=== PATIENT | female | born 1955 | race African-American/Black ===

== ENCOUNTER 2017-08-19 00:34 | Day surgery (SDC) | payer BC ==
[2017-08-19 01:13] LABS: #Eosinphils 0.1 thou/uL (0.0-0.7); #Lymphocytes 2.7 thou/uL (1.20-3.40); #Monocytes 0.5 thou/uL (0.11-0.59); #Neutrophils 3.6 thou/uL (1.40-6.50); %Basophils 0.3 % (0.0-1.0); %Lymphocytes 38.7 % (21.0-51.0); %Monocytes 7.4 % (0.0-10.0); %Neutrophils 51.6 % (42.0-75.0); Hemoglobin 10.1 g/dL (12.0-16.0); Mean Corpuscular HGB CONC 33.4 g/dL (32.0-36.0); Mean Corpuscular Hemoglobin 31.1 pg (27.0-31.0); Mean Corpuscular Volume 93.2 fl (81.0-99.0); Mean Platelet Volume 7.9 fL (7.4-10.4); Platelet Count 237 thou/uL (130-400); RBC Distribution Width 12.6 % (11.5-14.5); Red Blood Cell (RBC) Count 3.24 mill/uL (4.20-5.40); White Blood Cell (WBC) Count 6.9 thou/uL (4.8-10.8)
[2017-08-19] MEDS ORDERED: Ondansetron HCl/PF 4 MG/2 ML Vial ONE ×2 (01:31→02:09)
[2017-08-19 01:54] LABS: CKMB 1.7 ng/mL (0-6.6); Troponin I Less than 0.010 ng/mL (< 0.028)
[2017-08-19 02:03] LABS: ALT (SGPT) 13 U/L (8-55); AST (SGOT) 21 U/L (5-34); Albumin 4.2 g/dL (3.4-4.8); Alkaline Phosphatase 86 U/L (40-150); Anion Gap 15 mmol/L (10-20); BUN (Urea Nitrogen) 39 mg/dL (9.8-20.1); Bilirubin, Total 0.3 mg/dL (0.2-1.2); CK (CPK) 266 U/L (29-168); Calc. Creatinine Clearance 0 mL/min (70-130); Calcium 10.1 mg/dL (7.8-10.44); Carbon Dioxide 22 mmol/L (23-31); Chloride 108 mmol/L (98-107); Estimated GFR-MDRD 32; Globulin 3.6 g/dL (2.4-3.5); Glucose 124 mg/dL (80-115); Potassium 3.7 mmol/L (3.5-5.1); Protein, Total 7.8 g/dL (6.0-8.3); Sodium 141 mmol/L (136-145)
[2017-08-19] MEDS ORDERED: Famotidine 20 MG TAB ONE (02:51)
[2017-08-19] MEDS ORDERED: Lidocaine Viscous Sol 2% 15 ml UD Cup ONE (02:51)
[2017-08-19] MEDS ORDERED: Milk Of Magnesia 30 ML UDCUP ONE (02:51)
[2017-08-19] MEDS ORDERED: Metoclopramide HCl 10 MG/2 ML VIAL ONE ×2 (02:57→09:23)
[2017-08-19 04:51] LABS: CKMB 1.5 ng/mL (0-6.6); Troponin I Less than 0.010 ng/mL (< 0.028)
[2017-08-19] MEDS ORDERED: Ketorolac Tromethamine 30 MG/ML VIAL ONE (05:26)
[2017-08-19] MEDS ORDERED: Meropenem 1 GM in Syringe 20 ML SLOW IVP SCH (06:00)
[2017-08-19 06:04] LABS: Prothrombin Time 13.7 SEC (12.0-14.7)
[2017-08-19 06:05] LABS: PTT 54.9 SEC (22.9-36.1)
[2017-08-19] MEDS ORDERED: Scopolamine 1.5 mg/72 hour Patch ONE (07:32)
--- NOTE | 2017-08-19 08:03 | ULT ---
PRELIMINARY REPORT/[facility]/EMERGENCY AFTER HOURS PROCEDURE: EXAM: US Abdomen Limited, Right Upper Quadrant EXAM DATE/TIME: Exam ordered 08/19/2017 4:36 AM CLINICAL HISTORY: 62 years old, female; Pain; Other: Ruq pain, n/v TECHNIQUE: Real-time ultrasound of the right upper quadrant with image documentation. COMPARISON: No relevant prior studies available. FINDINGS: Liver: Unremarkable. No mass. No intrahepatic bile duct dilation. Gallbladder: Cholelithiasis at the neck of the gallbladder. Gallbladder is distended. Gallbladder wal l is at upper limits of normal in thickness and mildly thickened. No pericholecystic fluid. Sonograph ic Lucio's sign is reported positive. At the fundus of the gallbladder there is a subtle echogenic f ocus at or adjacent to the wall with comet tail artifact/dirty shadowing. Common bile duct: Unremarkable as visualized. No stones. No dilation. Pancreas: Unremarkable as visualized. Right kidney: Right kidney is polycystic. No hydronephrosis. No stones. IMPRESSION: 1. Cholelithiasis adnexal gallbladder. Probable mild gallbladder wall thickening or positive sonograp hic Lucio's sign, suspicious for acute cholecystitis. There is a subtle echogenic focus at or adjace nt to the wall of the fundus of the gallbladder with common tail artifact/dirty shadowing, either secondary to a cholesterol deposit in the wall or indicative of gas in the lumen of the gallbladder, the latter of which would indicate emphysematous cystitis. Recommend intravenous contrast enhanced CT abdomen/pelvis for more definitive characterization. 2. Polycystic renal disease. Thank you for allowing us to participate in the care of your patient. Dictated and Authenticated by: Jassi Lew MD 08/19/2017 5:14 AM Central Time ([place] & [place]) FINAL REPORT EMERGENCY AFTER HOURS SONOGRAM RIGHT UPPER QUADRANT: Date: 08/19/17 Time: 0440 hours HISTORY: Right upper quadrant pain. FINDINGS: Findings agree with the preliminary report by [facility]. Gallstones are confirmed. Irregular echogenicity at the gallbladder fundus could represent gas. Clinical correlation regarding other signs and symptom s of emphysematous cholecystitis is required. CT abdomen with IV and oral contrast could help with be tter characterization if needed. POS: [facility]
--- NOTE | 2017-08-19 08:05 | HP ---
HISTORY OF PRESENT ILLNESS: Eliza King is a 62-year-old black female, who presents to the emergency room with epigastric right upper quadrant pain, back radiation, first episode. She de nies any prior biliary symptoms. In the emergency room, she had a white count of 6.9, hemoglobin 10. 1, normal coagulation studies, normal liver function test, BUN of 39, creatinine 1.93 (chronic with p olycystic kidney disease). Sodium 141, potassium 3.7. She had an ultrasound that showed a normal bi le duct caliber and a gallstone lodged in the gallbladder neck. She presented to emergency room abou t 11:00 p.m. I was called about approximately 5:15 a.m. She was brought to outpatient surgery for a laparoscopic cholecystectomy. Risk of infection, bleeding, reoperation, visceral and biliary injury explained. She consents and questions answered. ALLERGIES: SULFA. TOBACCO: None. ALCOHOL: Socially. PAST MEDICAL HISTORY: Diabetes mellitus, non-insulin dependent, on oral hypoglycemics; hypertension; polycystic kidney disease with chronic kidney disease, followed by Dr. Felton Bobby; sleep apnea, she uses CPAP at night. Primary care physician is Dr. Bill. Patient denies any past history of ca rdiac disease. She has never had to have a stress test or catheterization. She has had a colonoscop y about 3 years ago. PAST SURGICAL HISTORY: Right total knee replacement 3 years ago, colonoscopy 3 years ago, total abdo griffin hysterectomy, bilateral salpingo-oophorectomy. Sphincterotomy for anal fissure in the past. 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 REVIEW OF SYSTEMS: Ten-point noncontributory, otherwise. PHYSICAL EXAMINATION: VITAL SIGNS: 117 kilograms, 171/104, 91, 21 respiratory rate, 98 degrees. HEAD, EARS, EYES, NOSE, AND THROAT: Unremarkable. Sclerae nonicteric. SKIN: Nonjaundiced. LUNGS: Clear to auscultation. CARDIAC: Regular rate and rhythm without murmur, rub, or gallop. ABDOMEN: Soft, tenderness in her epigastrium and right upper quadrant with guarding. EXTREMITIES: Unremarkable. LABORATORY DATA: As noted above. ASSESSMENT AND PLAN: 1. Acute cholecystitis and cholelithiasis, first episode. Recommend laparoscopic video cholecystect jalil. Risks and benefits as discussed above. 2. Sleep apnea, on CPAP, compliant. 3. Noninsulin-dependent diabetes mellitus, on oral hypoglycemics. 4. Hypertension. 5. Obesity. 6. Metabolic syndrome. 7. History of right hip replacement.
--- NOTE | 2017-08-19 08:53 | RAD ---
CHEST 1 VIEW: Date: 08/19/17 HISTORY: Chest pain. COMPARISON: Radiograph from 2013. FINDINGS: Lungs are clear. No pneumothorax or effusion. Cardiac silhouette and mediastinal contours within norm al limits. Mild atelectasis in the lung bases. IMPRESSION: No acute intrathoracic abnormality. POS: [facility]
[2017-08-19] MEDS ORDERED: Bupivacaine HCl 0.5%/Epinephrine 1:200,000/PF 30 ml Vial ONE (09:19)
[2017-08-19] MEDS ORDERED: HYDROmorphone 0.5 MG/0.5 ML SYRINGE ONE (09:23)
[2017-08-19] MEDS ORDERED: SUGAMMADEX SODIUM 500 MG/5 ML VIAL ONE (10:21)
--- NOTE | 2017-08-19 11:04 | OP ---
DATE OF PROCEDURE: 08/19/2017 PREOPERATIVE DIAGNOSES: Acute and chronic cholecystitis, cholelithiasis, morbid obesity, sleep apnea , diabetes mellitus, hypertension, metabolic syndrome. POSTOPERATIVE DIAGNOSES: Acute and chronic cholecystitis, cholelithiasis, morbid obesity, sleep apne a, diabetes mellitus, hypertension, metabolic syndrome. PROCEDURE: Laparoscopic video cholecystectomy. SURGEON: Dr. Felton Toure. ANESTHESIA: General. Local 0.5% Marcaine with epinephrine, 30 mL. PROCEDURES: The patient taken to the operating room in supine position under general anesthesia, abd omen prepared with ChloraPrep, draped in routine fashion. Local anesthetic infiltrated into skin and subcutaneous tissue about all port sites. Right lateral subcostal incision made, mid clavicular america es and Veress needle placed through a stab incision establishing pneumoperitoneum to 15 mmHg and Mago ss needle replaced with a 5 port laparoscope inserted. There is some omental adhesions about the umb ilicus and a supraumbilical incision made and a 5 port placed and video laparoscope moved to this por t. Right subxiphoid incision made and 11 port placed. Right lateral subcostal incision made and 5 p ort placed. Liver appeared to be normal. Some filmy adhesions taken down with cold scissors. Liver otherwise normal. Gallbladder was inflamed, thickened wall, edematous and fundus grasped, draining hydrops of the gallbladder. Infundibulum grasped and reflected laterally. Cystic artery and duct di ssected free. Critical view obtained with pericholecystic dissection. Two-thirds of cystic plate an d cystic artery and duct doubly clipped proximally, divided, and gallbladder dissected free from live r bed obtaining good hemostasis prior to division of final peritoneal attachments. Gallbladder and c ontents and large stone removed and submitted to Pathology. Good hemostasis ensured with the cautery . Irrigant and pneumoperitoneum evacuated. All instruments removed and all skin incisions approxima gm with interrupted subdermal 4-0 Monocryl and DermaGlue applied.
== END 2017-08-19 12:59 | disposition home or self-care (01) ==
LOC: ERS 00:34 → 3SE 05:35 → UNDOADMIN 05:35 → SDC 06:34
PROVIDERS: ATTEND Specialist
PROC: 0FT44ZZ Resection of Gallbladder, Percutaneous Endoscopic Approach (ICD-10-PCS; principal; 2017-08-19)
DX: K80.12 Calculus of gallbladder with acute and chronic cholecystitis without obstruction (principal); I10 Essential (primary) hypertension; E11.9 Type 2 diabetes mellitus without complications; G47.30 Sleep apnea, unspecified; E88.81 Metabolic syndrome and other insulin resistance; E66.01 Morbid (severe) obesity due to excess calories; Z88.2 Allergy status to sulfonamides; Z79.84 Long term (current) use of oral hypoglycemic drugs; Z99.89 Dependence on other enabling machines and devices; Z98.890 Other specified postprocedural states
CPT/HCPCS: 36415; 71045; 76705; 80053; 82553; 83690; 83880; 84484; 85025; 85610; 85730; 86850; 86900; 86901; 88304; 93005; 94760; 96365; 96375; 96376; J0131; J0670; J1170; J1885; J2185; J2405; J2765

== ENCOUNTER 2018-01-02 14:47 | Outpatient (CLI) | payer BC | END 2018-01-02 14:48 | disposition home or self-care (01) | LOC: DTY/OP 14:47 | PROVIDERS: ATTEND Family Medicine | DX: E78.5 Hyperlipidemia, unspecified (principal); E11.65 Type 2 diabetes mellitus with hyperglycemia; E66.01 Morbid (severe) obesity due to excess calories | CPT/HCPCS: 97802 ==

== ENCOUNTER 2018-08-18 15:21 | Outpatient (CLI) | payer BC ==
--- NOTE | 2018-08-18 17:22 | ULT ---
TRANSVAGINAL PELVIC ULTRASOUND: Clinical indication: Pelvic pain in a 63-year-old female. FINDINGS: There is nonvisualization of the uterus and adnexa. No free pelvic fluid is seen. Urinary bladder is mildly distended. IMPRESSION: 1. Nonvisualization of the uterus and adnexa. 2. No significant free pelvic fluid. POS: [facility]
== END 2018-08-18 15:22 | disposition home or self-care (01) ==
LOC: BICULT 15:21
PROVIDERS: ATTEND Family Medicine
DX: R10.2 Pelvic and perineal pain (principal); Q61.3 Polycystic kidney, unspecified
CPT/HCPCS: 76856

== ENCOUNTER 2019-04-10 15:13 | Outpatient (CLI) | payer BC ==
--- NOTE | 2019-04-10 16:25 | MMO ---
Bilateral MAMMO Bilat Screen [facility]. CLINICAL HISTORY: Patient is 64 years old and is seen for screening. The patient has no family history of breast cancer. The patient has no personal history of cancer. VIEWS: The views performed were: bilateral craniocaudal; bilateral craniocaudal with tomosynthesis; bilateral mediolateral oblique; and bilateral mediolateral oblique with tomosynthesis. FILMS COMPARED: The present examination has been compared to a prior imaging study performed at [facility] [place] on 01/24/2018. This study has been interpreted with the assistance of computer-aided detection. MAMMOGRAM FINDINGS: There are scattered fibroglandular densities. Benign calcifications are noted bilaterally. There are no suspicious masses, suspicious calcifications, or new areas of architectural distortion. IMPRESSION: THERE IS NO MAMMOGRAPHIC EVIDENCE OF MALIGNANCY. A ROUTINE FOLLOW-UP MAMMOGRAM IN 1 YEAR IS RECOMMENDED. THE RESULTS OF THIS EXAM WERE SENT TO THE PATIENT. ACR BI-RADS Category 2 - Benign finding MAMMOGRAPHY NOTE: 1. A negative mammogram report should not delay a biopsy if a dominant of clinically suspicious mass is present. 2. Approximately 10% to 15% of breast cancers are not detected by mammography. 3. Adenosis and dense breasts may obscure an underlying neoplasm. Reported by: LULA MORSE MD Electonically Signed: [id number]
== END 2019-04-10 15:14 | disposition home or self-care (01) ==
LOC: BICMAMMO 15:13
PROVIDERS: ATTEND Family Medicine
DX: Z12.31 Encounter for screening mammogram for malignant neoplasm of breast (principal)
CPT/HCPCS: 77063; 77067

== ENCOUNTER 2020-04-11 08:23 | Outpatient (CLI) | payer MEDICARE ==
--- NOTE | 2020-04-11 09:01 | MMO ---
Bilateral MAMMO Bilat Screen [facility]. CLINICAL HISTORY: Patient is 65 years old and is seen for screening. The patient has no family history of breast cancer. The patient has no personal history of cancer. VIEWS: The views performed were: bilateral craniocaudal with tomosynthesis and bilateral mediolateral oblique with tomosynthesis. FILMS COMPARED: The present examination has been compared to prior imaging studies performed at [facility] on 01/24/2018 and 04/10/2019. This study has been interpreted with the assistance of computer-aided detection. MAMMOGRAM FINDINGS: There are scattered fibroglandular densities. There are no suspicious masses, suspicious calcifications, or new areas of architectural distortion. IMPRESSION: THERE IS NO MAMMOGRAPHIC EVIDENCE OF MALIGNANCY. A ROUTINE FOLLOW-UP MAMMOGRAM IN 1 YEAR IS RECOMMENDED. THE RESULTS OF THIS EXAM WERE SENT TO THE PATIENT. ACR BI-RADS Category 1 - Negative MAMMOGRAPHY NOTE: 1. A negative mammogram report should not delay a biopsy if a dominant of clinically suspicious mass is present. 2. Approximately 10% to 15% of breast cancers are not detected by mammography. 3. Adenosis and dense breasts may obscure an underlying neoplasm. Reported by: VONNIE JASON MD Electonically Signed: [id number]
== END 2020-04-11 08:24 | disposition home or self-care (01) ==
LOC: BICMAMMO 08:23
PROVIDERS: ATTEND Family Medicine
DX: Z12.31 Encounter for screening mammogram for malignant neoplasm of breast (principal)
CPT/HCPCS: 77063; 77067

== ENCOUNTER 2020-08-19 07:28 | Outpatient (CLI) | payer MEDICARE | END 2020-08-19 07:29 | disposition home or self-care (01) | LOC: BICULT 07:28 | PROVIDERS: ATTEND Family Medicine | DX: I13.10 Hypertensive heart and chronic kidney disease without heart failure, with stage 1 through stage 4 chronic kidney disease, or unspecified chronic kidney disease (principal); E11.22 Type 2 diabetes mellitus with diabetic chronic kidney disease; N18.9 Chronic kidney disease, unspecified; N39.0 Urinary tract infection, site not specified; D63.1 Anemia in chronic kidney disease; Q61.3 Polycystic kidney, unspecified; M16.12 Unilateral primary osteoarthritis, left hip | CPT/HCPCS: 76770; 93975 ==

== ENCOUNTER 2021-04-12 11:49 | Outpatient (CLI) | payer MEDICARE | END 2021-04-12 11:50 | disposition home or self-care (01) | LOC: BICMAMMO 11:49 | PROVIDERS: ATTEND Family Medicine | DX: Z12.31 Encounter for screening mammogram for malignant neoplasm of breast (principal) | CPT/HCPCS: 77063; 77067 ==

== ENCOUNTER 2021-11-28 23:28 | Emergency (ER) | payer MEDICARE ==
[2021-11-29] MEDS ORDERED: Famotidine/PF 20 mg/2ml Vial ONE (00:18)
[2021-11-29] MEDS ORDERED: Ondansetron PF 4 MG/2 ML Vial ONE (00:18)
[2021-11-29] MEDS ORDERED: Lidocaine Viscous Sol 2% 15 ml UD Cup ONE (00:18)
[2021-11-29] MEDS ORDERED: Mag-Al 1200 mg/1200 mg/30 ML UDCUP ONE (00:18)
[2021-11-29 00:28] LABS: #Eosinphils 0.1 thou/uL (0.0-0.7); #Lymphocytes 1.6 thou/uL (1.20-3.40); #Monocytes 0.3 thou/uL (0.11-0.59); #Neutrophils 5.3 thou/uL (1.40-6.50); %Basophils 0.5 % (0.0-1.0); %Eosinophils 1.7 % (0.0-10.0); %Lymphocytes 21.7 % (21.0-51.0); %Neutrophils 72.2 % (42.0-75.0); Hemoglobin 10.1 g/dL (12.0-16.0); Mean Corpuscular HGB CONC 32.4 g/dL (32.0-36.0); Mean Corpuscular Hemoglobin 31.4 pg (27.0-31.0); Mean Platelet Volume 8.8 fL (7.4-10.4); Platelet Count 176 thou/uL (130-400); RBC Distribution Width 12.4 % (11.5-14.5); White Blood Cell (WBC) Count 7.3 thou/uL (4.8-10.8)
[2021-11-29 00:53] LABS: ALT (SGPT) 23 U/L (8-55); AST (SGOT) 46 U/L (5-34); Albumin 4.1 g/dL (3.4-4.8); Alkaline Phosphatase 112 U/L (40-110); Anion Gap 17 mmol/L (10-20); BUN (Urea Nitrogen) 57 mg/dL (9.8-20.1); Bilirubin, Total 0.5 mg/dL (0.2-1.2); Calc. Creatinine Clearance 0 mL/min (70-130); Calcium 9.6 mg/dL (7.8-10.44); Carbon Dioxide 18 mmol/L (23-31); Chloride 110 mmol/L (98-107); Globulin 3.9 g/dL (2.4-3.5); Glucose 132 mg/dL (80-115); Potassium 4.9 mmol/L (3.5-5.1); Sodium 140 mmol/L (136-145)
[2021-11-29 04:18] LABS: Troponin I Less than 0.010 ng/mL (< 0.028)
== END 2021-11-29 04:48 | disposition home or self-care (01) ==
LOC: ERS 23:28
DX: K21.00 Gastro-esophageal reflux disease with esophagitis, without bleeding (principal); R11.2 Nausea with vomiting, unspecified; I10 Essential (primary) hypertension; E11.9 Type 2 diabetes mellitus without complications
CPT/HCPCS: 36415; 71045; 80053; 84484; 85025; 93005; 96374; 96375; J2405; S0028

== ENCOUNTER 2022-05-09 12:11 | Outpatient (CLI) | payer MEDICARE | END 2022-05-09 12:12 | disposition home or self-care (01) | LOC: BICMAMMO 12:11 | PROVIDERS: ATTEND Family Medicine | DX: Z12.31 Encounter for screening mammogram for malignant neoplasm of breast (principal) | CPT/HCPCS: 77063; 77067 ==

== ENCOUNTER 2022-05-21 14:51 | Outpatient (CLI) | payer MEDICARE | END 2022-05-21 14:52 | disposition home or self-care (01) | LOC: BICMAMMO 14:51 | PROVIDERS: ATTEND Family Medicine | DX: Z13.820 Encounter for screening for osteoporosis (principal); Z78.0 Asymptomatic menopausal state | CPT/HCPCS: 77080 ==

== ENCOUNTER 2025-01-28 12:33 | Outpatient (CLI) | payer MEDICARE | END 2025-01-28 12:34 | disposition home or self-care (01) | LOC: SCSMRI 12:33 | PROVIDERS: ATTEND Family Medicine | DX: Z01.89 Encounter for other specified special examinations (principal); Z82.49 Family history of ischemic heart disease and other diseases of the circulatory system; Z84.89 Family history of other specified conditions | CPT/HCPCS: 70544; 70551 ==